=== PATIENT | female | born 1950 ===

== ENCOUNTER 2017-05-09 15:00 | Outpatient (RCR) | payer MEDICARE | END 2017-05-24 | disposition home or self-care (01) | LOC: WCC 15:00 | DX: I10 Essential (primary) hypertension (principal); Z86.73 Personal history of transient ischemic attack (TIA), and cerebral infarction without residual deficits; E11.9 Type 2 diabetes mellitus without complications; Z90.710 Acquired absence of both cervix and uterus | CPT/HCPCS: G0463 ==